=== PATIENT | male | born 1990 | race Caucasian/White ===

== ENCOUNTER 2023-08-23 17:51 | Emergency (ER) | payer BC ==
[~2023-08-23] VITALS: Ht 175.3 cm; Wt 109.1 kg
[2023-08-23 18:08] VITALS: BP 153/86; PULSE 76; TEMP 98.2
[2023-08-23] MEDS ORDERED: ZOFRAN ODT4 MG PO (18:34)
== END 2023-08-23 19:00 | disposition home or self-care (01) ==
LOC: COL.ER 17:51
DX: R11.2 Nausea with vomiting, unspecified (principal)